=== PATIENT | female | born 1945 | race Caucasian/White ===

== ENCOUNTER 2021-02-26 03:43 | Emergency (ER) | payer OTHER ==
--- OUTSIDE RECORDS SUMMARY | 2021-02-26 03:46 | XMS REPORT | Continuity of Care Document ---
:1945 Author Organization [facility] t Address [address] [place] [address] Dr. [address] [place] [address] Care Team Providers Name Role Phone Only, Test Attending Clinician Unavailable Doctor Unassigned, Name Attending Clinician Unavailable Problems This patient has no known problems. Allergies, Adverse Reactions, Alerts This patient has no known allergies or adverse reactions. Medications This patient has no known medications. Procedures This patient has no known procedures. Encounters Start End Encounter Admission Attending Care Care Encounter Source Date/Time Date/Time Type Type Clinicians Facility Department ID 2020-07-11 2020-07-11 Laboratory Only, [facility] [id number] 08:04:57 08:19:57 Only Test Charlene [id number] [place] [id number] [place] [id number] 2020-07-11 2020-07-11 Orders Doctor [place] [id number] 00:00:00 00:00:00 Only UnassignedREFUGIO [id number] [place] [facility] [id number] Results This patient has no known results.
[2021-02-26 04:23] LABS: Urine Blood 2+ (Negative); Urine Glucose Negative (Negative); Urine Protein 2+ (Negative); Urine Specific Gravity >=1.030 (1.005-1.030)
[2021-02-26 04:28] LABS: Absolute Lymphocytes (CBC) 1.9 K/uL (0.7-4.9); Basophils % 1.1 % (0-1.3); Hematocrit 39.3 % (36.0-45.0); Lymphocytes % 14.1 % (15.3-44.8); MPV 8.6 fL (7.6-11.3); RBC Red Blood Cell Count 4.34 M/uL (3.86-4.86)
[2021-02-26 04:39] LABS: Albumin 4.3 g/dL (3.4-5.0); Bilirubin Direct 0.2 mg/dL (0-0.2); Bilirubin Total 1.1 mg/dL (0.2-1.0); Potassium 3.9 mmol/L (3.5-5.1); Protein, Total 7.7 g/dL (6.4-8.2)
[2021-02-26] MEDS ORDERED: NA CHLORIDE 0.9% 1,000 ML ONE (04:48)
[2021-02-26] MEDS ORDERED: NA CHLORIDE 0.9% 500 ML ONE (04:48)
[2021-02-26 05:36] LABS: Urine Bacteria >50 /HPF (<20)
--- NOTE | 2021-02-26 06:40 | EDPHYS ---
Physician Documentation [facility] Name: Nathalie Winter Age: 75 yrs Sex: Female : 1945 Arrival Date: 02/26/2021 Time: 03:47 Bed 15 Private MD: Haile Braun R ED Physician Douglas Ham HPI: 02/26 04:18 This 75 yrs old Female presents to ER via Ambulatory with complaints of pkl Abdominal Pain, Diarrhea, Dont feel good. 04:18 The patient presents with abdominal pain in the lower abdomen. Onset: The pkl symptoms/episode began/occurred 1 week(s) ago. Associated signs and symptoms: Pertinent positives: nausea, vomiting, and diarrhea. Historical: - Allergies: 04:03 No Known Allergies; jm8 - Home Meds: 04:03 Unable to obtain [Active]; jm8 - PMHx: 04:03 Hypertension; Hypothyroidism; jm8 - Immunization history:: Adult Immunizations Client reports having NOT received the Covid vaccine. - Social history:: Smoking status: unknown. ROS: 04:18 Eyes: Negative for injury, pain, redness, and discharge, ENT: Negative for injury, pkl pain, and discharge, Neck: Negative for injury, pain, and swelling, Cardiovascular: Negative for chest pain, palpitations, and edema, Respiratory: Negative for shortness of breath, cough, wheezing, and pleuritic chest pain. 04:18 Abdomen/GI: Positive for abdominal pain, nausea, vomiting, and diarrhea, of the right lower quadrant and left lower quadrant. 04:18 Back: Negative for acute changes. 04:18 : Negative for urinary symptoms. 04:18 MS/extremity: Negative for acute changes. 04:18 Skin: Negative for rash. 04:18 Neuro: Negative for altered mental status, loss of consciousness. Exam: 04:18 Head/Face: Normocephalic, atraumatic. Eyes: Pupils equal round and reactive to light, pkl extra-ocular motions intact. Lids and lashes normal. Conjunctiva and sclera are non-icteric and not injected. Cornea within normal limits. Periorbital areas with no swelling, redness, or edema. ENT: Nares patent. No nasal discharge, no septal abnormalities noted. Tympanic membranes are normal and external auditory canals are clear. Oropharynx with no redness, swelling, or masses, exudates, or evidence of obstruction, uvula midline. Mucous membranes moist. Neck: Trachea midline, no thyromegaly or masses palpated, and no cervical lymphadenopathy. Supple, full range of motion without nuchal rigidity, or vertebral point tenderness. No Meningismus. Chest/axilla: Normal chest wall appearance and motion. Nontender with no deformity. No lesions are appreciated. Cardiovascular: Regular rate and rhythm with a normal S1 and S2. No gallops, murmurs, or rubs. Normal PMI, no JVD. No pulse deficits. Respiratory: Lungs have equal breath sounds bilaterally, clear to auscultation and percussion. No rales, rhonchi or wheezes noted. No increased work of breathing, no retractions or nasal flaring. 04:18 Abdomen/GI: Bowel sounds: normal, Palpation: soft, mild abdominal tenderness, in the right lower quadrant and left lower quadrant. 04:18 Back: Exam negative for acute changes. 04:18 : Exam negative for acute changes. 04:18 Musculoskeletal/extremity: Exam is negative for acute changes. 04:18 Skin: Exam negative for rash. 04:18 Neuro: Orientation: is normal, Mentation: is normal, Cranial nerves: grossly normal, Motor: is normal. Vital Signs: 03:59 BP 142 / 71; Pulse 92; Resp 16; Temp 98.5; Pulse Ox 99% ; Weight 58.97 kg; Height 5 ft. jm8 2 in. (157.48 cm); Pain 2/10; 06:45 BP 152 / 66; Pulse 71; Resp 16; Pulse Ox 99% on R/A; jm8 07:30 BP 145 / 69; Pulse 68; Resp 15; Pulse Ox 98% ; jl7 03:59 Body Mass Index 23.78 (58.97 kg, 157.48 cm) jm8 MDM: 04:00 Patient medically screened. pkl 06:33 Data reviewed: vital signs, nurses notes, lab test result(s), radiologic studies, CT pkl scan. 06:35 ED course: Patient feeling better. Discussed lab and CT Scan result with patient and pkl daughter. Advised to follow up with Dr. Braun ( PCP ) in 2 to 3 days. To return if necessary. Patient and daughter understood instructions. 02/26 03:58 Order name: COVID-19 : Document "Date of Symptom Onset" if Symptomatic. [facility] 02/26 03:58 Order name: Basic Metabolic Panel [facility] 02/26 03:58 Order name: CBC with Diff [facility] 02/26 03:58 Order name: Hepatic Function [facility] 02/26 03:58 Order name: Lipase [facility] 02/26 04:15 Order name: Stool Culture [facility] 02/26 04:18 Order name: Creatinine, Serum [facility] 02/26 04:23 Order name: Urine Dipstick-Ancillary; Complete Time: 04:45 EDMS 02/26 04:27 Order name: Urine Microscopic Only [facility] 02/26 04:27 Order name: Urine Culture [facility] 02/26 04:36 Order name: CBC with Automated Diff; Complete Time: 04:45 EDMS 02/26 04:39 Order name: Basic Metabolic Panel; Complete Time: 04:45 EDMS 02/26 04:39 Order name: Liver (Hepatic) Function; Complete Time: 04:45 EDMS 02/26 04:39 Order name: Lipase; Complete Time: 04:45 EDMS 02/26 03:58 Order name: IV Saline Lock; Complete Time: 04:25 [facility] 02/26 03:58 Order name: Labs collected and sent; Complete Time: 04:25 [facility] 02/26 03:58 Order name: Urine Dipstick-Ancillary (obtain specimen); Complete Time: 04:25 [facility] 02/26 04:15 Order name: CT Abd/Pelvis - IV Contrast Only [facility] 02/26 04:17 Order name: XRAY CXR (1 view) [facility] 02/26 04:53 Order name: Stool Culture [facility] 02/26 05:10 Order name: CORONAVIRUS [facility] 02/26 05:37 Order name: Urine Microscopic Only; Complete Time: 05:49 [facility]ID 02/26 06:01 Order name: SARS-COV-2 RT PCR; Complete Time: 06:29 EDMS Administered Medications: 04:32 Drug: NS 0.9% 500 ml Route: IV; Rate: bolus; Site: right forearm; jm8 05:35 Follow up: IV Status: Completed infusion 8 04:35 Drug: NS 0.9% 1000 ml Route: IV; Rate: 125 ml/hr; Site: right forearm; jm8 06:39 Drug: Cipro (ciprofloxacin) 400 mg Volume: 200 ml; Route: IVPB; Infused Over: 60 mins; jm8 Site: right antecubital; Disposition: 02/26/21 06:39 Discharged to Home. Impression: Abdominal pain. Urinary tract infection. - Condition is Stable. - Prescriptions for Zofran 4 mg Oral Tablet - take 1 tablet by ORAL route every 12 hours As needed; 14 tablet. Cipro 500 mg Oral Tablet - take 1 tablet by ORAL route every 12 hours for 7 days; 14 tablet. - Medication Reconciliation Form, Thank You Letter, Antibiotic Education, Prescription Opioid Use form. - Follow up: Haile Braun MD; When: 2 - 3 days; Reason: Re-evaluation by your physician. - Problem is new. - Symptoms have improved. Signatures: Dispatcher [employer] EDMS Douglas Ham MD MD pkl Marina May RN RN jl7 Raúl Villalobos 2 Brennon Carrington RN RN jm8 Corrections: (The following items were deleted from the chart) 07:56 06:39 02/26/2021 06:39 Discharged to Home. Impression: Abdominal pain. Urinary tract jl7 infection. Condition is Stable. Forms are Medication Reconciliation Form, Thank You Letter, Antibiotic Education, Prescription Opioid Use. Follow up: Haile Braun; When: 2 - 3 days; Reason: Re-evaluation by your physician. Problem is new. Symptoms have improved. pkl
--- NOTE | 2021-02-26 06:40 | ER ---
Nurse's Notes [facility] Name: Nathalie Winter Age: 75 yrs Sex: Female : 1945 Arrival Date: 02/26/2021 Time: 03:47 Bed 15 Private MD: Haile Braun R Diagnosis: Abdominal pain. Urinary tract infection Presentation: 02/26 03:59 Chief complaint: Patient states: I've been having abdominal pain, nausea, fatigue and jm8 diarrhea since yesterday. Coronavirus screen: Client denies travel out of the [place] in the last 14 days. diarrhea, fatigue, nausea, Client presents with at least one sign or symptom that may indicate coronavirus-19. Ebola Screen: Patient negative for fever greater than or equal to 101.5 degrees Fahrenheit, and additional compatible Ebola Virus Disease symptoms Patient denies exposure to infectious person. Patient denies travel to an Ebola-affected area in the 21 days before illness onset. Initial Sepsis Screen: Does the patient meet any 2 criteria? HR > 90 bpm. Does the patient have a suspected source of infection? No. Patient's initial sepsis screen is negative. Risk Assessment: Do you want to hurt yourself or someone else? Patient reports no desire to harm self or others. Onset of symptoms was February 25, 2021. 03:59 Method Of Arrival: Ambulatory [facility] 03:59 Acuity: FRANCI 3 jm8 Triage Assessment: 04:04 General: Appears in no apparent distress. comfortable, Behavior is calm, cooperative, jm8 appropriate for age. Pain: Complains of pain in abdomen Pain currently is 2 out of 10 on a pain scale. Pain began 1 day ago. Alleviated by medications. EENT: No deficits noted. No signs and/or symptoms were reported regarding the EENT system. Neuro: Level of Consciousness is awake, alert, obeys commands, Oriented to person, place, time. Cardiovascular: No deficits noted. Respiratory: No deficits noted. Respiratory: Airway is patent Trachea midline Respiratory effort is even, unlabored. GI: Bowel sounds present X 4 quads. Abd is soft and non tender X 4 quads. Reports lower abdominal pain, upper abdominal pain, diarrhea, nausea. : No deficits noted. No signs and/or symptoms were reported regarding the genitourinary system. Derm: No deficits noted. No signs and/or symptoms reported regarding the dermatologic system. Derm: Skin is intact, is healthy with good turgor, Skin is dry, Skin is pink, warm \\T\\ dry. Skin temperature is warm. Musculoskeletal: No deficits noted. No signs and/or symptoms reported regarding the musculoskeletal system. Historical: - Allergies: 04:03 No Known Allergies; jm8 - Home Meds: 04:03 Unable to obtain [Active]; jm8 - PMHx: 04:03 Hypertension; Hypothyroidism; jm8 - Immunization history:: Adult Immunizations Client reports having NOT received the Covid vaccine. - Social history:: Smoking status: unknown. Screenin:06 Abuse screen: Denies threats or abuse. Denies injuries from another. Nutritional jm8 screening: No deficits noted. Tuberculosis screening: No symptoms or risk factors identified. Fall Risk None identified. Assessment: 04:06 Reassessment: see triage assessment. 8 06:42 Reassessment: [phone]- Radha. jm8 Vital Signs: 03:59 BP 142 / 71; Pulse 92; Resp 16; Temp 98.5; Pulse Ox 99% ; Weight 58.97 kg; Height 5 ft. jm8 2 in. (157.48 cm); Pain 2/10; 06:45 BP 152 / 66; Pulse 71; Resp 16; Pulse Ox 99% on R/A; jm8 07:30 BP 145 / 69; Pulse 68; Resp 15; Pulse Ox 98% ; jl7 03:59 Body Mass Index 23.78 (58.97 kg, 157.48 cm) jm8 ED Course: 03:47 Patient arrived in ED. es 03:47 aHile Braun MD is Private Physician. es 04:00 Douglas Ham MD is Attending Physician. pkl 04:02 Triage completed. jm8 04:06 Arm band placed on right wrist. jm8 04:06 Patient has correct armband on for positive identification. Call light in reach. Side jm8 rails up X2. Adult w/ patient. 04:35 Inserted saline lock: 20 gauge in right forearm, using aseptic technique. Blood jm8 collected. 06:38 Haile Braun MD is Referral Physician. pkl 07:50 Marina May RN is Primary Nurse. jl7 07:55 No provider procedures requiring assistance completed. IV discontinued, intact, jl7 bleeding controlled, No redness/swelling at site. Pressure dressing applied. 07:56 CORONAVIRUS Sent. sv 07:56 Urine Microscopic Only Sent. sv 07:56 Urine Culture Sent. sv 07:56 Lipase Sent. sv 07:56 COVID-19 : Document "Date of Symptom Onset" if Symptomatic. Sent. sv 07:56 Hepatic Function Sent. sv 07:56 CBC with Diff Sent. sv 07:56 Basic Metabolic Panel Sent. sv 07:56 Creatinine, Serum Sent. sv Administered Medications: 04:32 Drug: NS 0.9% 500 ml Route: IV; Rate: bolus; Site: right forearm; jm8 05:35 Follow up: IV Status: Completed infusion jm8 04:35 Drug: NS 0.9% 1000 ml Route: IV; Rate: 125 ml/hr; Site: right forearm; jm8 06:39 Drug: Cipro (ciprofloxacin) 400 mg Volume: 200 ml; Route: IVPB; Infused Over: 60 mins; jm8 Site: right antecubital; Outcome: 06:39 Discharge ordered by . pkhumaira 07:55 Discharged to home ambulatory, with family. jl7 07:55 Condition: stable 07:55 Discharge instructions given to patient, family, Instructed on discharge instructions, follow up and referral plans. medication usage, Demonstrated understanding of instructions, follow-up care, medications, Prescriptions given X 2. 07:56 Patient left the ED. jl7 Signatures: Shae Pearson RN Douglas Ly MD MD pkl Salyer, Edna es Leal, Jahala, RN RN jl7 Malcaba, Joseph RN CHAYO jm8 Corrections: (The following items were deleted from the chart) 04:07 04:04 GI: Reports lower abdominal pain, upper abdominal pain, diarrhea, nausea, jm8 jm8
[2021-02-26] MEDS ORDERED: CIPROFLOXACIN 400mg IV 400 MG/200 ML BAG IV ONE (06:57)
[2021-02-26 08:09] VITALS: TEMP 98.5
[2021-02-26 08:12] VITALS: BP 145/69; O2SAT 98
--- NOTE | 2021-02-26 08:24 | RAD REPORT ---
EXAM DESCRIPTION: RAD - Chest Single View - 02/26/2021 4:39 am CLINICAL HISTORY: ABDOMINAL DISTENTION COMPARISON: None TECHNIQUE: AP portable chest image was obtained 02/26/2021 4:39 am . FINDINGS: Lungs are clear. Heart and vasculature are normal. No measurable pleural effusion and no p neumothorax. No acute bony abnormality seen. No acute aortic findings suspected. IMPRESSION: No acute cardiopulmonary process.
--- NOTE | 2021-02-26 11:10 | RAD REPORT ---
EXAM DESCRIPTION: CT - Abdomen Pelvis W Contrast - 02/26/2021 6:51 am CLINICAL HISTORY: The patient is 75 years old and is Female; ABD PAIN TECHNIQUE: Axial computed tomography images of the abdomen and pelvis with intravenous contrast. S agittal and coronal reformatted images were created and reviewed. This CT exam was performed using one or more of the following dose reduction techniques: automated exposure control, adjustment of t he mA and/or kV according to patient size, and/or use of iterative reconstruction technique. COMPARISON: No relevant prior studies available. FINDINGS: Lung bases: Unremarkable. No mass. No consolidation. ABDOMEN: Liver: Unremarkable. No mass. Gallbladder and bile ducts: Unremarkable. No calcified stones. No ductal dilation. Pancreas: Unremarkable. No mass. No ductal dilation. Spleen: Unremarkable. No splenomegaly. Adrenals: Unremarkable. No mass. Kidneys and ureters: Unremarkable. No solid mass. No hydronephrosis. Stomach and bowel: Scattered colonic diverticula without evidence of diverticulitis. No obstruction. PELVIS: Appendix: No findings to suggest acute appendicitis. Bladder: Unremarkable. No mass. Reproductive: Unremarkable as visualized. ABDOMEN and PELVIS: Intraperitoneal space: Small amount of free fluid in the dependent pelvis. No free air. Bones/joints: No acute fracture. No dislocation. Soft tissues: Unremarkable. Vasculature: Unremarkable. No abdominal aortic aneurysm. Lymph nodes: Unremarkable. No enlarged lymph nodes. IMPRESSION: 1. No acute finding. 2. Small amount of free fluid in the dependent pelvis. 3. Scattered colonic diverticula without evidence of diverticulitis. Electronically signed by: Demarco Nguyen MD 02/26/2021 6:01 AM CDT Due to temporary technical issues with the PACS/Fluency reporting system, reports are being signed by the in house radiologists without review as a courtesy to insure prompt reporting. The interpreting radiologist is fully responsible for the content of the report.
== END 2021-02-26 07:56 | disposition home or self-care (01) ==
LOC: ER 03:43
DX: N39.0 Urinary tract infection, site not specified (principal); I10 Essential (primary) hypertension; E03.9 Hypothyroidism, unspecified; Z20.822 Contact with and (suspected) exposure to COVID-19
CPT/HCPCS: 87088; 85025; 87086; 80048; 36415; 80076; 83690; 74177; 71045; U0003; Q9967; J7040; J7030; J0744; 81003; 81015; 96361; 96374; 99284

== ENCOUNTER 2024-12-17 02:13 | Emergency (ER) | payer OTHER ==
--- OUTSIDE RECORDS SUMMARY | 2024-12-17 02:18 | XMS REPORT | Continuity of Care Document ---
Author Name Unknown Address [address] [place] [address] [facility] [place] Address [address] [place] [address] Care Team Providers Care Rehab Manager Name Role Phone Kristie Johnson Primary Care Physician [phone] DR ISAIAH SORIA Attending Clinician Polo SORIA, DR COLON Attending Clinician JALYON Dasilva Attending Clinician DR ROSA Parish Attending Clinician UnaDR ROSA Rhoades Attending Clinician TRE Daniels Attending Clinician UnavailTRE Carcamo Attending Clinician Unavaillinda Nathan MD, Tre Taylor Attending Clinician [phone] PRINCESS SHELDON Attending Clinician Unavailable Nurse, [facility] Attending Clinician Un available Unknown, Attending Attending Clinician UnavailYOAN Stanton Attending Clinician Unavailable JIM BO Attending Clinician Yessica PITO Moe Attending Clinician Unavailable Pito Melendrez Attending Clinician [phone] Unknown, Attending Attending Clinician Unavailab Ivory Epstein MD Attending Clinician [phone] Princess Sheldon PA-C Attending Clinician [phone] Doctor Unassigned, [place] Attending Clinician U navailable Only, Adc Test Attending Clinician Unavailable Demarco Castillo MD Attending Clinician [phone] DR ISAIAH SORIA Admitting Clinician Polo REILLY, DR ROSA Veliz Admitting Clinician Jose De Jesus gonzalez Payers Payer Name Policy Type Policy Number Effective Date Expirati on Date Source 0500 [id number] 2024 00:00:00 MEDICARE PART A AND B [id number] 2010 00:00:00 MEDICARE PART A \\T\\ B [id number] 2010 00:00:00 Problems Condition Name Condition Details Condition Category Status Onset Date Resolution Date Last Treatment Date Treating Clinician Comments Source Delusions Delusions Disease Active 06-09 00:00: 00 [facility] Hallucinat ions Hallucinat ions Disease Active 06-09 00:00: 00 [facility] Decreased activities of daily living (ADL) Decreased activities of daily living (ADL) Disease Active 06-09 00:00: 00 [facility] Anosognosi a Anosognosi a Disease Active 06-09 00:00: 00 [facility] Wandering Wandering Disease Active 06-09 00:00: 00 [facility] At risk for elder abuse At risk for elder abuse Disease Active 06-09 00:00: 00 [facility] 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 06-09 00:00: 00 [facility] Hypertensi on Hypertensi on Disease Active [facility] Allergies, Adverse Reactions, Alerts Allergy Name Allergy Type Status Severity Reaction(s) Onset Date Inactive Date Treating Clinician Comments Source NO KNOWN ALLERGIE S Drug Class Active [facility] No Known Drug Allergie s DA Active [facility] Social History Social Habit Start Date Stop Date Quantity Comments Source Exposure to SARS-CoV-2 (event) Not sure [facility] Sexual orientation [facility] History of Social function 2024-06-09 00:00:00 2024-06-09 00:00:00 [facility] Alcoholic beverage intake 2024-06-09 00:00:00 2024-06-09 00:00:00 Lifetime non-drinker (finding) [facility] Tobacco use and exposure 2023-09-10 00:00:00 2023-09-10 00:00:00 Smokeless tobacco non-user [facility] Sex assigned at 1945 00:00:00 1945 00:00:00 F [facility] Smoking Status Start Date Stop Date Source Tobacco smoking consumption unknown [facility] Never smoked tobacco [facility] Medications Ordered Medication Name Filled Medication Name Start Date Stop Date Current Medication? Ordering Clinician Indication Dosage Frequency Signature (SIG) Comments Components Source levothyroxi ne (SYNTHROID) tablet 50 mcg 07-11 11:00: 00 Yes 50ug 50 mcg, Oral, QAM-0600, First dose on Thu07/11/24 at 0600, [facility]isin[facility] (PRINIVIL,Z ESTRIL) tablet 30 mg 07-10 15:45: 00 07-10 14:51 :00 No 30mg 30 mg, Oral, ONCE, 1 dose, On 07/10/24 at 1045, [facility] amLODIPine (NORVASC) tablet 5 mg 07-10 15:00: 00 07-10 14:51 :00 No 5mg 5 mg, Oral, ONCE, 1 dose, On 07/10/24 at 1000, DEBORAH [facility] amLODIPine 5 mg tablet 07-10 00:00: 00 Yes [id number] 5mg Take 1 tablet by mouth in the morning. [facility] lisinopriL 30 mg tablet 07-10 00:00: 00 Yes [id number] 30mg Take 1 tablet by mouth in the morning. [facility] levothyroxi ne 50 mcg tablet 07-10 00:00: 00 Yes [id number] 50ug Take 1 tablet by mouth every morning. [facility] QUEtiapine XR (SEROquel XR) 50 MG 24 hr tablet 06-09 00:00: 00 12-07 05:59 :00 No [id number] 50mg Take 1 tablet (50 mg total) by mouth every night. Do not crush, chew, or split. [facility] levothyroxi ne (SYNTHROID) 50 mcg tablet 04-01 16:54: 32 04-01 00:00 :00 No 50ug Take 1 tablet by mouth every morning. [facility] propranoloL 10 mg tablet 04-01 16:34: 20 Yes 10mg Take 1 tablet by mouth in the morning and 1 tablet in the evening. [facility] amLODIPine 5 mg tablet 04-01 00:00: 00 05-02 04:59 :00 No [id number] 5mg Take 1 tablet by mouth in the morning for 30 days. [facility] levothyroxi ne (SYNTHROID) 50 mcg tablet 04-01 00:00: 00 05-02 04:59 :00 No [id number] 50ug Take 1 tablet by mouth every morning for 30 days. [facility] lisinopriL 30 mg tablet 04-01 00:00: 00 05-02 04:59 :00 No [id number] 30mg Take 1 tablet by mouth in the morning for 30 days. [facility] polymyxin B sulf-trimet hoprim 10,000 unit- 1 mg/mL ophthalmic drops 04-01 00:00: 00 04-09 04:59 :00 No [id number] 1[drp] Place 1 Drop in both eyes every 6 (six) hours for 7 days. [facility] levothyroxi ne (Synthroid, Levoxyl) 50 MCG tablet 12-04 09:56: 45 Yes 50ug Take 50 mcg by mouth every morning. [facility] propranolol (Inderal) 10 MG tablet 12-04 09:56: 45 Yes 10mg Q.5D Take 10 mg by mouth 2 (two) times a day, in the morning and at bedtime. [facility] levothyroxi ne (SYNTHROID) 50 mcg tablet 2022-10 14:39: 41 Yes 50ug Take 1 tablet by mouth every morning. [facility] propranoloL 10 mg tablet 2022-10 14:39: 32 Yes 10mg Take 1 tablet by mouth in the morning and 1 tablet in the evening. [facility] nirmatrelvi r-ritonavir (PAXLOVID) 300 mg (150 mg x 2)-100 mg tablet 2022-10 00:00: 00 Yes [id number] 3{tbl} Take 3 tablets by mouth in the morning and 3 tablets in the evening. [facility] amoxicillin 500 mg capsule 2022-10 00:00: 00 Yes 500mg Take 1 capsule by mouth in the morning and 1 capsule at noon and 1 capsule in the evening. [facility] Nitrofurant oin&Nit. Macrocryst (MACROBID) 100 mg capsule 2022-10 00:00: 00 09-18 05:59 :00 No [id number] 100mg Take 1 capsule by mouth in the morning and 1 capsule in the evening. Do all this for 7 days. [facility] lisinopril 30 MG tablet 2022-10 00:00: 00 Yes 30mg Take 30 mg by mouth every morning. [facility] amLODIPine (Norvasc) 5 MG tablet 2022-10 00:00: 00 Yes 5mg QD Take 5 mg by mouth 1 (one) time each day. [facility] Vital Signs Vital Name Observation Time Observation Value Comments S ource Height 2024-07-23 08:57:00 160.02 CM Weight 2024-07-23 08:57:00 50 KG Weight 2024-08-08 07:00:00 49.6 KG Weight 2024-08-01 07:00:00 47.9 KG Weight 2024-07-25 07:00:00 47.7 KG Height 2024-07-23 08:57:00 160.02 CM Weight 2024-07-23 08:57:00 50 KG Weight 2024-08-08 07:00:00 49.6 KG Weight 2024-08-01 07:00:00 47.9 KG Weight 2024-07-25 07:00:00 47.7 KG Height 2024-07-23 08:57:00 160.02 CM Weight 2024-07-23 08:57:00 50 KG Body weight 2024-07-10 14:36:00 49.805 kg [facility] BMI 2024-07-10 14:36:00 19.45 kg/m2 [facility] Systolic blood pressure 2024-07-10 14:35:00 196 mm[Hg] [facility] Diastolic blood pressure 2024-07-10 14:35:00 93 mm[Hg] [facility] Heart rate 2024-07-10 14:35:00 68 /min [facility] Body temperature 2024-07-10 14:35:00 36.61 Elisabet [facility] Respiratory rate 2024-07-10 14:35:00 20 /min [facility] Body height 2024-07-10 14:35:00 160 cm [facility] Oxygen saturation in Arterial blood by Pulse oximetry 2024-07-10 14:35:00 100 /min [facility] Systolic blood pressure 2024-07-10 14:27:00 199 mm[Hg] [facility] Diastolic blood pressure 2024-07-10 14:27:00 75 mm[Hg] [facility] Heart rate 2024-07-10 14:26:00 60 /min [facility] Body temperature 2024-07-10 14:26:00 36.44 Elisabet [facility] Respiratory rate 2024-07-10 14:26:00 18 /min [facility] Oxygen saturation in Arterial blood by Pulse oximetry 2024-07-10 14:26:00 100 /min [facility] Systolic blood pressure 2024-06-09 18:18:00 157 mm[Hg] [facility] Diastolic blood pressure 2024-06-09 18:18:00 68 mm[Hg] [facility] Heart rate 2024-06-09 18:17:00 72 /min [facility] Body height 2024-06-09 18:17:00 160 [facility] Body weight 2024-06-09 18:17:00 [facility].438 [facility] BMI 2024-06-09 18:17:00 20.09 [facility]m2 [facility] Oxygen saturation in Arterial blood by Pulse oximetry 2024-06-09 18:17:00 98 /min [facility] Systolic blood pressure 2024-04-01 21:33:00 171 mm[Hg] [facility] Diastolic blood pressure 2024-04-01 21:33:00 73 mm[Hg] [facility] Heart rate 2024-04-01 21:33:00 69 /min [facility] Body temperature 2024-04-01 21:33:00 36.78 Elisabet [facility] Respiratory rate 2024-04-01 21:33:00 17 /min [facility] Body weight 2024-04-01 21:33:00 50.803 kg [facility] BMI 2024-04-01 21:33:00 20.49 kg/m2 [facility] Oxygen saturation in Arterial blood by Pulse oximetry 2024-04-01 21:33:00 99 /min [facility] Diastolic blood pressure 2023-12-04 15:57:00 73 mm[Hg] [facility] Heart rate 2023-12-04 15:57:00 53 /min [facility] Body height 2023-12-04 15:57:00 160 [facility] Body weight 2023-12-04 15:57:00 49.442 [facility] BMI 2023-12-04 15:57:00 19.31 kg[facility]m2 [facility] Oxygen saturation in Arterial blood by Pulse oximetry 2023-12-04 15:57:00 99 /min [facility] Systolic blood pressure 2023-12-04 15:57:00 136 mm[Hg] [facility] Systolic blood pressure 2023-09-25 20:25:00 149 mm[Hg] [facility] Diastolic blood pressure 2023-09-25 20:25:00 79 mm[Hg] [facility] Heart rate 2023-09-25 20:24:00 87 /min [facility] Body temperature 2023-09-25 20:24:00 37.83 Elisabet [facility] Respiratory rate 2023-09-25 20:24:00 18 /min [facility] Body height 2023-09-25 20:24:00 157.5 cm [facility] Body weight 2023-09-25 20:24:00 51.12 kg [facility] BMI 2023-09-25 20:24:00 20.61 kg/m2 [facility] Oxygen saturation in Arterial blood by Pulse oximetry 2023-09-25 20:24:00 97 /min [facility] Systolic blood pressure 2023-09-10 19:43:00 166 mm[Hg] [facility] Diastolic blood pressure 2023-09-10 19:43:00 70 mm[Hg] [facility] Heart rate 2023-09-10 19:41:00 54 /min [facility] Body temperature 2023-09-10 19:41:00 36.56 Elisabet [facility] Respiratory rate 2023-09-10 19:41:00 20 /min [facility] Body height 2023-09-10 19:41:00 160 cm [facility] 2023-09-10 19:41:00 51.982 kg [facility] BMI 2023-09-10 19:41:00 20.30 kg/m2 [facility] Oxygen saturation in Arterial blood by Pulse oximetry 2023-09-10 19:41:00 100 /min [facility] Procedures Procedure Date / Time Performed Performing Clinician Source TSH 2023-12-09 16:49:00 [facility] 2023-12-09 16:49[facility] 2023-12-09 16:49:00 Jj Staley [facility] VITAMIN B12 AND FOLATE PANEL, SERUM 2023-12-09 16:49:00 [facility] PO[facility] SARS-COV-2 ANTIGEN (BINAX NOW) 2023-09-25 20:41:00 Princess Sheldon [facility] POCT MOLECULAR FLU 2023-09-25 20:37:00 Unknown, Attend [facility] POCT URINALYSIS 2023-09-10 19:39:00 Gabriela [facility] CONSENT/REFUSAL FOR DIAGNOSIS AND TREATMENT 2023-09-10 19:20:30 Doctor Unassigned, [place] [facility] ASSIGNMENT OF BENEFITS 2020-07-11 13:08:13 Docto r Unassigned, [place] [facility] Encounters Start Date/Time End Date/Time Encounter Type Admission Type Attending Clinicians Care Facility Care Department Encounter ID Source 2024-07-23 09:47:00 Inpatient ISAIAH MARSH [facility] [id number] [facility] 2023-10-08 09:27:00 Outpatient [facility] [id number] [facility] 2022-01-15 08:00:02 Outpatient [facility] [id number] [facility] 2024-09-14 13:30:00 2024-09-14 13:30:00 Outpatient EMILY WARRENGAS JAYLON [facility] [id number] [facility] 2024-07-23 09:47:00 2024-08-09 13:00:00 Inpatient ISAIAH MARSH [facility] [id number] [facility] 2024-07-23 09:47:00 2024-08-09 13:00:00 Outpatient OMCDOCS [facility] [id number] [facility] 2024-07-24 09:00:00 2024-07-24 11:00:00 Emergency ROAS [facility]AMONTES [facility] [id number] [facility] 2024-07-24 09:00:00 2024-07-24 11:00:00 Emergency ROSA MIRAMONTES [facility] [id number] [facility] 2024-07-10 09:37:00 2024-07-10 10:05:00 Emergency X TRE NATHAN ROBERT [facility] ERT [id number] [facility] 2024-07-10 09:37:00 2024-07-10 10:05:00 Emergency Tre [facility] 1..840.114 350.1.13.10 4.2.7.2.686 [id number] [facility] 2024-07-10 09:15:00 2024-07-10 09:28:42 Outpatient PRINCESS EVANS [facility] [id number] [facility] 2024-07-10 09:15:00 2024-07-10 09:28:42 Nurse Visit Nurse, [facility] Unknown, Attending Nurse, [facility] 1..840.114 350.1.13.10 4.2.7.2.686 [id number] [facility] 2024-06-22 08:30:00 2024-06-22 08:30:00 Outpatient YOAN GALLAGHER [facility] [id number] [facility] 2024-06-17 00:00:00 2024-06-17 11:08:40 Charges Jaylon Reddy BBS 1..840.114 350.1.13.58 9.2.7.2.686 [id number] [facility] 2024-06-09 13:30:00 2024-06-09 14:41:54 Office Visit Jaylon Reddy UTP BBSB 1.114 350.1.13.58 9.2.7.2.686 [id number] [facility] 2024-04-02 09:33:00 2024-04-02 10:36:00 Emergency E JIM BO [facility] [id number] [address] [place] [address] 2024-04-01 16:20:00 2024-04-01 16:55:22 Outpatient R VAZ PITO [facility] [id number] [facility] 2024-04-01 16:20:00 2024-04-01 16:55:22 Urgent Care Allyson Vazkhalifstephen Unknown, Attending [facility] 1.114 350.1.13.10 4.2.7.2.686 [id number] [facility] 2024-03-17 11:00:00 2024-03-17 11:22:11 Telemedici ne Ivory Staley [facility]BS[facility] 1.114 350.1.13.58 9.2.7.2.686 [id number] [facility] 2024-02-16 12:30:00 2024-02-17 10:52:09 Outpatient YOAN GALLAGHER [facility] [id number] [facility] 2023-12-04 10:00:00 2023-12-04 10:37:50 Office Visit Ivory Staley [facility]BS[facility] 1.114 350.1.13.58 9.2.7.2.686 [id number] [facility] 2023-09-25 14:20:00 2023-09-25 14:40:00 Urgent Care Breanna Princess Unknown, Attending [facility] 1.114 350.1.13.10 4.2.7.2.686 [id number] [facility] 2023-09-25 14:20:00 2023-09-25 14:20:00 Outpatient R PRINCESS SHELDON [facility] [id number] [facility] 2023-09-10 13:20:00 2023-09-10 14:12:32 Outpatient R PRINCESS SHELDON [facility] [id number] [facility] 2023-09-10 13:20:00 2023-09-10 14:12:32 Urgent Care Princess Sheldon Unknown, Attending [facility] 1.84.114 350.1.13.10 4.2.7.2.686 [id number] [facility] 2023-09-10 00:00:00 2023-09-10 00:00:00 Orders Only Doctor Unassigned, [place] [address]..114 350.1.13.10 4.2.7.2.686 [id number] [facility] 2020-07-11 08:45:00 2020-07-11 08:45:00 Outpatient R [facility] [id number] [facility] 2020-07-11 08:04:57 2020-07-11 08:19:57 Laboratory Only Only, Adc Test JonathanDemarco [facility] 1..114 350.1.13.10 4.2.7.2.686 [id number] [facility] 2020-07-11 08:04:57 2020-07-11 08:19:57 Laboratory Only Only, Adc Test [facility] 1.840.114 350.1.13.10 4.2.7.2.686 [id number] 2020-07-11 00:00:00 2020-07-11 00:00:00 Orders Only Doctor Unassigned, [place] [address] 350.1.13.10 4.2.7.2.686 [id number] [facility] 2020-07-11 00:00:00 2020-07-11 00:00:00 Orders Only Doctor Unassigned, [place] [facility] 1.2.840.114 350.1.13.10 4.2.7.2.686 [id number] Results Test Description Test Time Test Comments Results Result Co mments Source VALPROIC ACID (DEPAKENE)2024-08-03 07:27:00* Test Item Value Reference Range Interpretation Comme nts VALP ACID (test code = 95A) <3.0 ug/mL 50.0-100.0 LL BASIC METABOLIC [id number] 07:07:00* Test Item Value Reference Range Interpretation Comme nts GLUCOSE (test code = 06D) 93 mg/dL 75-100 SODIUM (test code = 01A) 139 mmol/L 136-145 POTASSIUM (test code = 01B) 4.7 mmol/L 3.6-5.1 CHLORIDE (test code = 04A) 107 mmol/L 98-107 CO2 (test code = 02A) 24 mmol/L 20-31 ANION GAP (test code = ANG) 12.7 mmol/L BUN (test code = 05D) 23 mg/dL 9-23 CREATININE (test code = 03E) 0.7 mg/dL 0.6-1.0 GFR (test code = GFR) 88 mL/min/1.73m\\S\\2 >=90 L EGFR (test code = EGFR) eGFR BY CKD-EPI CALCULATION IS NOT RECOMMENDED FOR PATIENTS UNDER 18 YEARS OF AGE. BUN/CREA (test code = BCR) 33 12-20 H CALCIUM (test code = 09D) 9.2 mg/dL 8.3-10.6 CBC (INCLUDES AUTOMATED DIFFERENTIAL)2024-08-03 06:56:00* Test Item Value Reference Range Interpretation Comme nts WBC (test code = WBC) 8.9 10\\S\\3/uL 4.5-11.0 RBC (test code = RBC) 3.48 10\\S\\6/uL 3.80-5.80 L HGB (test code = HBG) 10.6 g/dL 12.0-15.5 L HCT (test code = HCT) 32.3 % 35.0-44.0 L MCV (test code = MCV) 92.8 fL 81.0-99.0 MCH (test code = MCH) 30.5 pg 27.0-31.0 MCHC (test code = MCHC) 32.8 g/dL 32.0-36.0 RDW (test code = RDW) 12.7 % 11.5-14.5 PLT (test code = PLT) 279 10\\S\\3/uL 130-400 MPV (test code = MPV) 9.9 fL 9.4-12.4 NEUTROP # (test code = NE#) 4.9 10\\S\\3/uL 1.6-8.0 LYMPH # (test code = LY#) 2.9 10\\S\\3/uL 1.1-3.5 MONOCYTE # (test code = MO#) 0.8 10\\S\\3/uL 0.0-1.1 EOSINOPH # (test code = EO#) 0.2 10\\S\\3/uL 0.0-0.7 BASOPHIL # (test code = BA#) 0.1 10\\S\\3/uL 0.0-0.3 IG # (test code = IG#) 0.02 10\\S\\3/uL 0.00-0.06 NRBC # (test code = NRBC#) 0.00 10\\S\\3/uL 0.00-0.01 NEUTROPH % (test code = NE%) 54.6 % 35.0-73.0 LYMPH % (test code = LY%) 32.4 % 20.0-55.0 MONO % (test code = MO%) 9.1 % 2.5-10.0 EOSINOPH % (test code = EO%) 2.6 % 0.0-5.0 BASOPHIL % (test code = BA%) 1.1 % 0.0-2.0 IG % (test code = IG%) 0.2 % 0.0-0.8 NRBC% (test code = NRBC%) 0.0 % 0.0-0.2 MANDIFF (test code = MDIFF) NO RBC MORPH (test code = RBCMOR) NORMAL URINE [id number] 09:00:00* Test Item Value Reference Range Interpretation Comme nts Culture Observations (test code = COB1) NO GROWTH (<1,000 CFU/ML) CBC (INCLUDES AUTOMATED DIFFERENTIAL)2024-07-29 08:04:00* Test Item Value Reference Range Interpretation Comme nts WBC (test code = WBC) 7.9 10\\S\\3/uL 4.5-11.0 RBC (test code = RBC) 3.80 10\\S\\6/uL 3.80-5.80 HGB (test code = HBG) 11.5 g/dL 12.0-15.5 L HCT (test code = HCT) 35.1 % 35.0-44.0 MCV (test code = MCV) 92.4 fL 81.0-99.0 MCH (test code = MCH) 30.3 pg 27.0-31.0 MCHC (test code = MCHC) 32.8 g/dL 32.0-36.0 RDW (test code = RDW) 13.1 % 11.5-14.5 PLT (test code = PLT) 256 10\\S\\3/uL 130-400 MPV (test code = MPV) 9.8 fL 9.4-12.4 NEUTROP # (test code = NE#) 4.4 10\\S\\3/uL 1.6-8.0 LYMPH # (test code = LY#) 2.6 10\\S\\3/uL 1.1-3.5 MONOCYTE # (test code = MO#) 0.6 10\\S\\3/uL 0.0-1.1 EOSINOPH # (test code = EO#) 0.2 10\\S\\3/uL 0.0-0.7 BASOPHIL # (test code = BA#) 0.1 10\\S\\3/uL 0.0-0.3 IG # (test code = IG#) 0.02 10\\S\\3/uL 0.00-0.06 NRBC # (test code = NRBC#) 0.00 10\\S\\3/uL 0.00-0.01 NEUTROPH % (test code = NE%) 55.6 % 35.0-73.0 LYMPH % (test code = LY%) 32.4 % 20.0-55.0 MONO % (test code = MO%) 8.1 % 2.5-10.0 EOSINOPH % (test code = EO%) 2.5 % 0.0-5.0 BASOPHIL % (test code = BA%) 1.1 % 0.0-2.0 IG % (test code = IG%) 0.3 % 0.0-0.8 NRBC% (test code = NRBC%) 0.0 % 0.0-0.2 MANDIFF (test code = MDIFF) NO RBC MORPH (test code = RBCMOR) NORMAL BASIC METABOLIC [id number] 07:38:00* Test Item Value Reference Range Interpretation Comme nts GLUCOSE (test code = 06D) 94 mg/dL 75-100 SODIUM (test code = 01A) 138 mmol/L 136-145 POTASSIUM (test code = 01B) 4.8 mmol/L 3.6-5.1 CHLORIDE (test code = 04A) 107 mmol/L 98-107 CO2 (test code = 02A) 25 mmol/L 20-31 ANION GAP (test code = ANG) 10.8 mmol/L BUN (test code = 05D) 18 mg/dL 9-23 CREATININE (test code = 03E) 1.0 mg/dL 0.6-1.0 GFR (test code = GFR) 57 mL/min/1.73m\\S\\2 >=90 L EGFR (test code = EGFR) eGFR BY CKD-EPI CALCULATION IS NOT RECOMMENDED FOR PATIENTS UNDER 18 YEARS OF AGE. BUN/CREA (test code = BCR) 18 12-20 CALCIUM (test code = 09D) 9.3 mg/dL 8.3-10.6 COMPREHENSIVE METABOLIC [id number] 10:04:00* Test Item Value Reference Range Interpretation Comme nts GLUCOSE (test code = 06D) 121 mg/dL 75-100 H SODIUM (test code = 01A) 143 mmol/L 136-145 POTASSIUM (test code = 01B) 3.5 mmol/L 3.6-5.1 L CHLORIDE (test code = 04A) 106 mmol/L 98-107 CO2 (test code = 02A) 30 mmol/L 20-31 ANION GAP (test code = ANG) 10.5 mmol/L BUN (test code = 05D) 17 mg/dL 9-23 CREATININE (test code = 03E) 0.8 mg/dL 0.6-1.0 GFR (test code = GFR) 80 mL/min/1.73m\\S\\2 >=90 L EGFR (test code = EGFR) eGFR BY CKD-EPI CALCULATION IS NOT RECOMMENDED FOR PATIENTS UNDER 18 YEARS OF AGE. BUN/CREA (test code = BCR) 22 12-20 H CALCIUM (test code = 09D) 10.0 mg/dL 8.3-10.6 BILI TOTAL (test code = 11A) 1.6 mg/dL 0.2-1.0 H PROTEIN (test code = 07D) 6.7 g/dL 5.7-8.2 ALBUMIN (test code = 08D) 4.9 g/dL 3.2-4.8 H GLOBULIN (test code = GLB) 1.8 g/dL 1.5-3.8 ALB/GLOB (test code = AGRR) 2.7 1.0-2.6 H ALK PHOS (test code = 35A) 89 IU/L 46-116 AST (test code = 30A) 22 IU/L <=33 ALT (test code = 31A) 13 IU/L 10-49 TROPONIN [id number] 10:02:00* Test Item Value Reference Range Interpretation Comme nts TROPONIN I (test code = A84) 17.32 pg/mL 0.00-45.20 CBC (INCLUDES AUTOMATED DIFFERENTIAL)2024-07-24 09:50:00* Test Item Value Reference Range Interpretation Comme nts WBC (test code = WBC) 11.6 10\\S\\3/uL 4.5-11.0 H RBC (test code = RBC) 3.96 10\\S\\6/uL 3.80-5.80 HGB (test code = HBG) 12.0 g/dL 12.0-15.5 HCT (test code = HCT) 35.8 % 35.0-44.0 MCV (test code = MCV) 90.4 fL 81.0-99.0 MCH (test code = MCH) 30.3 pg 27.0-31.0 MCHC (test code = MCHC) 33.5 g/dL 32.0-36.0 RDW (test code = RDW) 12.9 % 11.5-14.5 PLT (test code = PLT) 255 10\\S\\3/uL 130-400 MPV (test code = MPV) 9.8 fL 9.4-12.4 NEUTROP # (test code = NE#) 7.8 10\\S\\3/uL 1.6-8.0 LYMPH # (test code = LY#) 2.8 10\\S\\3/uL 1.1-3.5 MONOCYTE # (test code = MO#) 0.8 10\\S\\3/uL 0.0-1.1 EOSINOPH # (test code = EO#) 0.1 10\\S\\3/uL 0.0-0.7 BASOPHIL # (test code = BA#) 0.1 10\\S\\3/uL 0.0-0.3 IG # (test code = IG#) 0.03 10\\S\\3/uL 0.00-0.06 NRBC # (test code = NRBC#) 0.00 10\\S\\3/uL 0.00-0.01 NEUTROPH % (test code = NE%) 66.6 % 35.0-73.0 LYMPH % (test code = LY%) 24.2 % 20.0-55.0 MONO % (test code = MO%) 7.0 % 2.5-10.0 EOSINOPH % (test code = EO%) 1.0 % 0.0-5.0 BASOPHIL % (test code = BA%) 0.9 % 0.0-2.0 IG % (test code = IG%) 0.3 % 0.0-0.8 NRBC% (test code = NRBC%) 0.0 % 0.0-0.2 MANDIFF (test code = MDIFF) NO RBC MORPH (test code = RBCMOR) NORMAL GLUCOMETER GLUCOSE- LAB USE [id number] 09:10:00* Test Item Value Reference Range Interpretation Comme nts GLUCOMETER (test code = GMG) 109 mg/dL 70-100 H CLEANED METERMet er ID: [id number]: [id number] MELODY WILSON VALPROIC ACID (DEPAKENE)2024-07-23 16:59:00* Test Item Value Reference Range Interpretation Comme nts VALP ACID (test code = 95A) <3.0 ug/mL 50.0-100.0 LL B12 [id number] 16:57:00* Test Item Value Reference Range Interpretation Comme nts VIT B12 (test code = A60) 453.0 pg/mL 211.0-911.0 [id number] 16:44:00* Test Item Value Reference Range Interpretation Comme nts FOLATE (test code = A75) 23.0 ng/mL >=5.5 THYROID PANEL/SCREEN (TSH)2024-07-23 16:40:00* Test Item Value Reference Range Interpretation Comme nts TSH (test code = A57) 3.637 uIU/mL 0.550-4.780 [id number] 16:35:00* Test Item Value Reference Range Interpretation Comme nts PREALBUMIN (test code = 08E) 26 mg/dL 10-40 [id number] 16:35:00* Test Item Value Reference Range Interpretation Comme nts MAGNESIUM (test code = 48A) 2.1 mg/dL 1.6-2.6 LIPID [id number] 16:35:00* Test Item Value Reference Range Interpretation Comme nts CHOLESTROL (test code = 44A) 177 mg/dL <=199 TRIGLYCERI (test code = 42B) 118 mg/dL <=149 HDL (test code = 83D) 58.9 mg/dL 40.0-60.0 LDL (test code = 34B) 98 mg/dL <=99 CHL/HDL (test code = CHR) 3.0 0.0-3.4 CBC (INCLUDES AUTOMATED DIFFERENTIAL)2024-07-23 16:33:00* Test Item Value Reference Range Interpretation Comme nts WBC (test code = WBC) 11.8 10\\S\\3/uL 4.5-11.0 H RBC (test code = RBC) 4.08 10\\S\\6/uL 3.80-5.80 HGB (test code = HBG) 12.4 g/dL 12.0-15.5 HCT (test code = HCT) 37.3 % 35.0-44.0 MCV (test code = MCV) 91.4 fL 81.0-99.0 MCH (test code = MCH) 30.4 pg 27.0-31.0 MCHC (test code = MCHC) 33.2 g/dL 32.0-36.0 RDW (test code = RDW) 12.8 % 11.5-14.5 PLT (test code = PLT) 292 10\\S\\3/uL 130-400 MPV (test code = MPV) 10.0 fL 9.4-12.4 NEUTROP # (test code = NE#) 7.7 10\\S\\3/uL 1.6-8.0 LYMPH # (test code = LY#) 3.1 10\\S\\3/uL 1.1-3.5 MONOCYTE # (test code = MO#) 0.8 10\\S\\3/uL 0.0-1.1 EOSINOPH # (test code = EO#) 0.1 10\\S\\3/uL 0.0-0.7 BASOPHIL # (test code = BA#) 0.1 10\\S\\3/uL 0.0-0.3 IG # (test code = IG#) 0.03 10\\S\\3/uL 0.00-0.06 NRBC # (test code = NRBC#) 0.00 10\\S\\3/uL 0.00-0.01 NEUTROPH % (test code = NE%) 65.3 % 35.0-73.0 LYMPH % (test code = LY%) 25.8 % 20.0-55.0 MONO % (test code = MO%) 6.6 % 2.5-10.0 EOSINOPH % (test code = EO%) 1.1 % 0.0-5.0 BASOPHIL % (test code = BA%) 0.9 % 0.0-2.0 IG % (test code = IG%) 0.3 % 0.0-0.8 NRBC% (test code = NRBC%) 0.0 % 0.0-0.2 MANDIFF (test code = MDIFF) NO RBC MORPH (test code = RBCMOR) NORMAL NORMAL BASIC METABOLIC [id number] 16:32:00* Test Item Value Reference Range Interpretation Comme nts GLUCOSE (test code = 06D) 128 mg/dL 75-100 H SODIUM (test code = 01A) 143 mmol/L 136-145 POTASSIUM (test code = 01B) 3.6 mmol/L 3.6-5.1 CHLORIDE (test code = 04A) 109 mmol/L 98-107 H CO2 (test code = 02A) 25 mmol/L 20-31 ANION GAP (test code = ANG) 12.6 mmol/L BUN (test code = 05D) 16 mg/dL 9-23 CREATININE (test code = 03E) 0.7 mg/dL 0.6-1.0 GFR (test code = GFR) 88 mL/min/1.73m\\S\\2 >=90 L EGFR (test code = EGFR) eGFR BY CKD-EPI CALCULATION IS NOT RECOMMENDED FOR PATIENTS UNDER 18 YEARS OF AGE. BUN/CREA (test code = BCR) 23 12-20 H CALCIUM (test code = 09D) 9.5 mg/dL 8.3-10.6 [id number] 16:30:00* Test Item Value Reference Range Interpretation Comme [facility] Hb A1C % (test code = HBA) 5.4 % A1C % (test code = A1C) HbA1c (% ) Reference Range Normal <5.7 Prediabetes 5.7-6.4 Diabetic >=6.5 COMPREHENSIVE METABOLIC [id number] 09:28:00* Test Item Value Reference Range Interpretation Comme [facility] GLUCOSE (test code = 06D) 97 mg/dL 75-100 SODIUM (test code = 01A) 144 mmol/L 136-145 POTASSIUM (test code = 01B) 3.7 mmol/L 3.6-5.1 CHLORIDE (test code = 04A) 109 mmol/L 98-107 H CO2 (test code = 02A) 26 mmol/L 20-31 ANION GAP (test code = ANG) 12.7 mmol/L BUN (test code = 05D) 15 mg/dL 9-23 CREATININE (test code = 03E) 0.6 mg/dL 0.6-1.0 GFR (test code = GFR) 91 mL/min/1.73m\\S\\2 >=90 EGFR (test code = EGFR) eGFR BY CKD-EPI CALCULATION IS NOT RECOMMENDED FOR PATIENTS UNDER 18 YEARS OF AGE. BUN/CREA (test code = BCR) 25 12-20 H CALCIUM (test code = 09D) 9.5 mg/dL 8.3-10.6 BILI TOTAL (test code = 11A) 1.8 mg/dL 0.2-1.0 H PROTEIN (test code = 07D) 6.8 g/dL 5.7-8.2 ALBUMIN (test code = 08D) 4.9 g/dL 3.2-4.8 H GLOBULIN (test code = GLB) 1.9 g/dL 1.5-3.8 ALB/GLOB (test code = AGRR) 2.6 1.0-2.6 ALK PHOS (test code = 35A) 87 IU/L 46-116 AST (test code = 30A) 22 IU/L <=33 ALT (test code = 31A) 13 IU/L LIVER [id number] 09:28:00* Test Item Value Reference Range Interpretation Comme nts BILI TOTAL (test code = 11A) 1.8 mg/dL 0.2-1.0 H BILI DIRCT (test code = 12A) 0.5 mg/dL 0.0-0.3 H BILI INDIR (test code = BILII) 1.4 mg/dL <=0.8 H PROTEIN (test code = 07D) 6.8 g/dL 5.7-8.2 ALBUMIN (test code = 08D) 4.9 g/dL 3.2-4.8 H GLOBULIN (test code = GLB) 1.9 g/dL 1.5-3.8 ALB/GLOB (test code = AGRR) 2.6 1.0-2.6 ALK PHOS (test code = 35A) 87 IU/L 46-116 AST (test code = 30A) 22 IU/L <=33 ALT (test code = 31A) 13 IU/L [id number] 09:28:00* Test Item Value Reference Range Interpretation Comme nts ACETAMINPH (test code = 94M) <0.2 mg/dL 1.2-2.5 L SARS-CoV (RAPID ANTIGEN)2024-07-23 09:27:00* Test Item Value Reference Range Interpretation Comme nts SARS-CoV (ANTIGEN) (test code = COVAG) NEGATIVE NEGATIVE COVID AG (test code = COVAGC) This test has been marketed under the FDA Emergency Use Authorization (EUA) to meet challenges of the COVID-19 pandemic. The validation standards normally enforced by the FDA and the [employer] the [employer] [place] [employer] (CAP) are more stringent than those required for this test. Therefore, the result should be interpreted with caution and close attention to other clinical and epidemiological data ALCOHOL BLOOD (ETOH)2024-07-23 09:26:00* Test Item Value Reference Range Interpretation Comme nts ETOH (test code = HALC) ETHANOL * The result is to be used only for medical purposes ALCOHOL (test code = 56A) <10 mg/dL <=10 PRO TIME AND [id number] 09:26:00* Test Item Value Reference Range Interpretation Comme nts INR (test code = INR) 1.0 INRH (test code = INRH) SUGGESTED THERAPEUTIC RANGE FOR INR: 2.5 - 3.5 For Patients with Prosthetic Valves or Patients with recurrent Thromboembolic Events 2.0 - 3.0 For Most Other Applications PTT (test code = PTT) 29.4 s 20.2-38.0 PTTH (test code = PTTH) To monitor the effectiveness of heparin, we offer the Anti-Xa (Heparin Assay). It can be used for either unfractionated or LMW Heparin. Order Code is ANTI-XA URINALYSIS WITH [id number] 09:23:00* Test Item Value Reference Range Interpretation Comme nts COLOR (test code = COLU) YELLOW YELLOW CLARITY (test code = CLA) CLEAR CLEAR GLUCOSE UR (test code = UA GLUCOSE) NEGATIVE NEGATIVE BILI UR (test code = BILE) NEGATIVE NEGATIVE KETONES UR (test code = ALICIA) NEGATIVE NEGATIVE SP GRAVITY (test code = SPGR) 1.011 1.005-1.030 PH UR (test code = PH) 6.5 4.5-8.0 PROTEIN UR (test code = PU) NEGATIVE NEGATIVE UROBIL UR (test code = UROQ) 0.2 EU/dL 0.2-1.0 NITRITE UR (test code = NITRITE) NEGATIVE NEGATIVE BLOOD UR (test code = UA BLOOD) NEGATIVE NEGATIVE LEUK ES UR (test code = LEUK) 1+ NEGATIVE A WBC UR (test code = UWBC) 1 /HPF 0-5 RBC UR (test code = URBC) 0 /HPF 0-2 EPITH UR (test code = UEPC) FEW /LPF FEW BACTERIA UR (test code = UBACT) FEW /HPF NONE A CAST UR (test code = CAST) /LPF NONE CRYSTAL UR (test code = CRYU) / LPF NONE MUCUS UR (test code = MUC) / HPF NONE AMORPH UR (test code = GAVIOTA) / HPF NONE TRICH UR (test code = UTRICH) /HPF NONE YEAST UR (test code = UY) /HPF NONE SPERM UR (test code = USPERM) /HPF NONE CBC (INCLUDES AUTOMATED DIFFERENTIAL)2024-07-23 09:16:00* Test Item Value Reference Range Interpretation Comme nts WBC (test code = WBC) 7.7 10\\S\\3/uL 4.5-11.0 RBC (test code = RBC) 3.78 10\\S\\6/uL 3.80-5.80 L HGB (test code = HBG) 11.6 g/dL 12.0-15.5 L HCT (test code = HCT) 34.3 % 35.0-44.0 L MCV (test code = MCV) 90.7 fL 81.0-99.0 MCH (test code = MCH) 30.7 pg 27.0-31.0 MCHC (test code = MCHC) 33.8 g/dL 32.0-36.0 RDW (test code = RDW) 13.0 % 11.5-14.5 PLT (test code = PLT) 271 10\\S\\3/uL 130-400 MPV (test code = MPV) 10.5 fL 9.4-12.4 NEUTROP # (test code = NE#) 4.6 10\\S\\3/uL 1.6-8.0 LYMPH # (test code = LY#) 2.2 10\\S\\3/uL 1.1-3.5 MONOCYTE # (test code = MO#) 0.6 10\\S\\3/uL 0.0-1.1 EOSINOPH # (test code = EO#) 0.1 10\\S\\3/uL 0.0-0.7 BASOPHIL # (test code = BA#) 0.1 10\\S\\3/uL 0.0-0.3 IG # (test code = IG#) 0.03 10\\S\\3/uL 0.00-0.06 NRBC # (test code = NRBC#) 0.00 10\\S\\3/uL 0.00-0.01 NEUTROPH % (test code = NE%) 60.0 % 35.0-73.0 LYMPH % (test code = LY%) 29.1 % 20.0-55.0 MONO % (test code = MO%) 7.7 % 2.5-10.0 EOSINOPH % (test code = EO%) 1.8 % 0.0-5.0 BASOPHIL % (test code = BA%) 1.0 % 0.0-2.0 IG % (test code = IG%) 0.4 % 0.0-0.8 NRBC% (test code = NRBC%) 0.0 % 0.0-0.2 MANDIFF (test code = MDIFF) NO RBC MORPH (test code = RBCMOR) NORMAL AMMONIA [id number] 09:15:00* Test Item Value Reference Range Interpretation Comme nts AMMONIA (test code = 54A) 26 umol/L 11-32 [id number] 09:15:00* Test Item Value Reference Range Interpretation Comme nts SALICYLATE (test code = 94B) <3.0 mg/dL 15.0-30.0 L DRUGS OF [id number] 09:14:00* Test Item Value Reference Range Interpretation Comme nts DRUG SCRN (test code = HDOA) URINE DRUG SCREEN This is an unconfirmed screening result and should not be used for non-medical purposes CANNABINOD (test code = 88C) NEGATIVE NEGATIVE AMPHETAMINE (test code = 84A) NEGATIVE NEGATIVE BENZODIAZP (test code = 86A) NEGATIVE NEGATIVE BARBITURAT (test code = 85A) NEGATIVE NEGATIVE OPIATES (test code = 92B) NEGATIVE NEGATIVE COCAINE (test code = 87A) NEGATIVE NEGATIVE PHENCYCLID (test code = 66A) NEGATIVE NEGATIVE METHADONE (test code = 64A) NEGATIVE NEGATIVE DOAH (test code = DOAH.) URINE DRUGSCREEN Cut-off values are as follows: Cannabinoids 50 ng/mL Cocaine 300 ng/mL Amphetamines 1000 ng/mL Phencyclidine 25 ng/mL Benzodiazepines 200 ng.mL Methadone 300 ng/mL Barbiturates 200 ng/mL Opiates 300 ng/mL CARDIAC [id number] 09:14:00* Test Item Value Reference Range Interpretation Comme nts TROPONIN I (test code = A84) 7.92 pg/mL 0.00-45.20 CARDIO IQ APOE [id number] 17:25:00* Test Item Value Reference Range Interpretation Comments APOE GENOTYPE (test code = 55947-8) 3/3 COMMENTS (test code = 8251-1) See Below Apo E3 Carrier. ?Most common (normal) genotype. ?SeeGuidance Statements. LIMITATIONS (test code = 33896-6) See Below Although rare, f alse positive or false negative results mayoccur. All results should be interpreted in context ofclinical findings, relevant history, and other laboratorydata. This test was developed and its analytical performancecharacteristics have been determined by [facility]. It has not beencleared or approved by FDA. This assay has been validatedpursuant to the CLIA regulations and is used for clinicalpurposes. REPORT COMMENT:FASTING:NO REVIEWER (test code = 23517-7) See Below Laboratory resul ts reviewed and released by [facility]. METHOD (test code = 39239-4) See Below Real-Time Polyme rase Chain Reaction (PCR). Analyticsensitivity and specificity of the genetic assays using thisplatform exceed 99.9%. RAC (test code = RAC) Performing Organization Information: ? ?Site ID: EZ ? ?Name: [facility] ? ?Address: [address] [place] [address] ? ?Director: SHARON BOWERS MD,PHD ,LEIL[place] HealthMethylmalonic acid, [id number] 00:01:00* Test Item Value Reference Range Interpretation Comments METHYLMALONIC ACID, SERUM (test code = 93734-1) 235 nmol/L 87-318 This test was de veloped and its analytical performancecharacteristics have been determined by [employer].It has not been cleared or approved by FDA. This assay hasbeen validated pursuant to the CLIA regulations and is usedfor clinical purposes. REPORT COMMENT:FASTING:NO RAC (test code = RAC) Performing Organization Information: ? ?Site ID: EZ ? ?Name: [facility] ? ?Address: [address] [place] [phone] ? ?Director: SHARON BOWERS MD,PHD ,LEILA [facility]man[facility]ITAMIN B12 AND FOLATE PANEL, [id number] 04:59:00* Test Item Value Reference Range Interpretation Comme nts VITAMIN B12 (test code = 2132-9) 740 pg/mL 200-1100 FOLATE, SERUM (test code = 2284-8) 12.5 ng/mL ? Reference Range ? Low: ? <3.4 ? Borderline: ? ?3.4-5.4 ? Normal: ?>5.4 REPORT COMMENT:FASTING:N O RAC (test code = RAC) Performing Organization Information: ? ?Site ID: RGA ? ?Name: [facility] [place] [facility] ? ?Address: [address] [place] [phone] ? ?Director: KEIRA ARREGUIN MD,PHD. [id number] 04:59:00* Test Item Value Reference Range Interpretation Comme nts TSH (test code = 3016-3) 3.15 0.40-4.50 RAC (test code = RAC) Performing Organization Information: ? ?Site ID: RGA ? ?Name: [facility] [place] [facility] ? ?Address: [address] [place] [phone] ? ?Director: KEIRA ARREGUIN MD,PHD. [facility] Molecular [id number] 20:49:25* Test Item Value Reference Range Interpretation Comme nts POCT Molecular FluA (test co de = 76462-1) Negative Negative POCT Molecular FluB (test co de = 06565-1) Negative Negative Lab Interpretation (test cod e = 03975-6) Normal [facility] SARS-COV-2 ANTIGEN (BINAX NOW)2023-09-25 20:41:00* Test Item Value Reference Range Interpretation Comme nts POCT SARS-COV-2 ANTIGEN (test code = 22202-7) Positive Not Detected A On board controls acceptable with C Line (test code = 3574) Yes SANDI (test code = SANDI) accurate developme nt and interpretation of all internal controls Lab Interpretation (test code = 27524-3) Abnormal [facility] URINALYSIS W SPECIFIC [id number] 19:40:00* Test Item Value Reference Range Interpretation Comme nts POCT U SP GRAV (test code = 3255) 1.005 mg/dl 1.005-1.025 POCT PH U (test code = 3254) 7 mg/dl 5-8 POCT U LEUK EST (test code = 3263) neg Negative - Negative POCT U NIT (test code = 3262) neg Negative - Negative POCT U PROT (test code = 3259) neg Negative - Negative POCT U GLU (test code = 3256) normal Negative - Negative POCT U KETONE (test code = 3258) neg Negative - Negative POCT U UROBILI (test code = 3260) normal 0.2-1 POCT U BILI (test code = 3261) neg Negative - Negative POCT U BLD (test code = 3257) trace Negative - Negative POCT U COLOR (test code = 3266) yellow POCT U APPEAR (test code = 3267) clear SANDI (test code = SANDI) accurate developme nt and interpretation of all internal controls Lab Interpretation (test code = 49658-5) Normal [facility] Notes Date/Time Note Provider Source 2024-07-10 09:33:34 Patient here with daughter. Patient states that she has not had her medications for two days because ever since her about one year ago her other daughter has been controlling. The other daughter is now AFSHAN for past two days and medications are stored in an automatic 30 day container that opens automatically each day, they can here the alarm but can not locate the pill container, and cannot reach the daughter that takes of that to ask her where it is. Patient's daughter that is here now says the last time this happened it had been about two weeks without meds. Patient is complaining of headache. Juancarlos Melton RN [facility] 2024-07-10 09:28:00 [facility] Emergency Department Note Patient Name: Melissa Juan Date of : 1945 78 year old female Treatment Room: Room/bed info not found Primary Care Physician: PATIENT DOES NOT HAVE A PCP Patient Escorted by: Family [5] Mode of Arrival: Personal means [1] EMS Treatment Prior to ED Arrival: TONG SETTER treatment: None Travel and Exposure Screening: Symptoms Does patient have any of these symptoms?: (not recorded) Exposure Screening Has patient had contact with someone with a communicable disease in the last month?: (not recorded) Diseases exposed to:: (not recorded) Is Patient ?: (not recorded) Exposure Date: (not recorded) Chief Complaint: Chief Complaint Patient presents with Hypertension History of Present Illness: Daily medications for hypertension and hypothyroidism are either misplaced or lost. Last dose was 3 days ago. Has noted blood pressure drifting upward. No acute symptoms. History provided by: Patient and relative (Daughter) Past Medical History/Immunizations: Past Medical History: Diagnosis Date Essential (primary) hypertension Hypothyroidism Tetanus received in last 5 years: Unknown Allergies: No Known Allergies Past Social History: Tobacco Use Never smoked or used smokeless tobacco. Passive Exposure: Never Past Surgical History: History reviewed. No pertinent surgical history. Review of Systems: Review of Systems Constitutional: Negative. HENT: Negative. Eyes: Negative. Respiratory: Negative. Cardiovascular: Negative. Gastrointestinal: Negative. Genitourinary: Negative. Musculoskeletal: Negative. Skin: Negative. Neurological: Positive for headaches (mild, similar to prior). Psychiatric/Behavioral: Negative. Physical Exam: ED Triage Vitals Weight 07/10/24 0936 49.8 kg (109 lb 12.8 oz) Actual or estimated 07/10/24 0936 Actual Height 07/10/24 0935 1.6 m (5' 3") BP 07/10/24 0935 (!) 196/93 Pulse 07/10/24 0935 68 Resp 07/10/24 0935 20 Temp 07/10/24 0935 36.6 ?C (97.9 ?F) Temp source 07/10/24 0935 Oral SpO2 07/10/24 0935 100 % Measured on -- Physical Exam Vitals and nursing note reviewed. Constitutional: General: She is not in acute distress. Appearance: Normal appearance. She is not ill-appearing, toxic-appearing or diaphoretic. HENT: Head: Normocephalic and atraumatic. Right Ear: External ear normal. Left Ear: External ear normal. Nose: Nose normal. Mouth/Throat: Mouth: Mucous membranes are moist. Eyes: Conjunctiva/sclera: Conjunctivae normal. Cardiovascular: Rate and Rhythm: Normal rate and regular rhythm. Pulmonary: Effort: Pulmonary effort is normal. Breath sounds: Normal breath sounds. Abdominal: General: There is no distension. Palpations: Abdomen is soft. Tenderness: There is no abdominal tenderness. Musculoskeletal: General: Normal range of motion. Right lower leg: No edema. Left lower leg: No edema. Skin: General: Skin is warm and dry. Neurological: General: No focal deficit present. Mental Status: She is alert. Psychiatric: Mood and Affect: Mood normal. Behavior: Behavior normal. Thought Content: Thought content normal. Judgment: Judgment normal. Radiology: No orders to display Lab Results: Lab Results - No data to display EKG: If EKG completed, see Procedure Note. Orders and Treatments: No orders of the defined types were placed in this encounter. Orders Placed This Encounter Medications amLODIPine (NORVASC) tablet 5 mg lisinopriL (PRINIVIL,ZESTRIL) tablet 30 mg levothyroxine (SYNTHROID) tablet 50 mcg amLODIPine 5 mg tablet lisinopriL 30 mg tablet levothyroxine 50 mcg tablet First Provider Eval: ED Events Date/Time Event User Comments 07/10/24930 Medical Screening Begins TRE NATHAN MD -- 07/10/24930 First Provider Evaluation TRE NATHAN MD -- ED COURSE Diagnosis/Impression as of 07/10/24 0959 Primary hypertension Hypothyroidism, unspecified type Medication refill Procedures: Procedures MDM: Medical Decision Making Primary impression: essential hypertension Secondary impression: hypothyroidism, medication refill Problems Addressed: Hypothyroidism, unspecified type: chronic illness or injury Medication refill: self-limited or minor problem Primary hypertension: acute illness or injury Amount and/or Complexity of Data Reviewed Independent Historian: Details: Self, daughter Labs: Details: N/a Radiology: Details: N/a ECG/medicine tests: Details: N/a Discussion of management or test interpretation with external provider(s): N/a Risk Prescription drug management. Risk Details: Unremarkable OBS in ED. No acute symptoms suggestive of acute end organ failure / damage. Exam is unremarkable. Discussed options that include extensive workup in ED for acute blood pressure assessment including EKG, serum studies, CT Head. She declines, preferring simply refill of medications that have been misplaced last 3 days. Daughter agrees. Patient and daughter appear to have appropriate medical decision making capacity. Findings and plan discussed with patient. No findings that require acute hospitalization today. Today's dose of each medication administered in ED. 1-month rx sent to preferred pharmacy. She has a PCP in [place]. Today is Thursday. Flowsheet Documentation: Scoring Tools: No data recorded Disposition/Condition: ED Disposition ED Disposition Disch - Home Condition Stable Comment -- Discharge Medications: Patient's Medications START taking these medications AMLODIPINE 5 MG TABLET Take 1 tablet by mouth in the morning. LEVOTHYROXINE 50 MCG TABLET Take 1 tablet by mouth every morning. LISINOPRIL 30 MG TABLET Take 1 tablet by mouth in the morning. CONTINUE taking these medications which have NOT CHANGED AMOXICILLIN 500 MG CAPSULE Take 1 capsule by mouth in the morning and 1 capsule at noon and 1 capsule in the evening. NIRMATRELVIR-RITONAVIR (PAXLOVID) 300 MG (150 MG X 2)-100 MG TABLET Take 3 tablets by mouth in the morning and 3 tablets in the evening. PROPRANOLOL 10 MG TABLET Take 1 tablet by mouth in the morning and 1 tablet in the evening. START taking Modified Medications as Prescribed No medications on file STOP taking these medications No medications on file Follow-up: PCP Electronically signed by: Tre Nathan MD 07/10/24 0959 T [facility]
[2024-12-17 02:55] LABS: Absolute Lymphocytes (CBC) 1.2 K/uL (0.7-4.9); Absolute Monocytes 0.8 K/uL (0.1-1.3); Absolute Neutrophil 3.2 K/uL (1.8-8.0); Basophils % 0.6 % (0-1.3); Eosinophils % 0.7 % (0-4.4); Hematocrit 28.1 % (36.0-45.0); Lymphocytes % 22.7 % (15.3-44.8); MCH 31.5 pg (27.0-35.0); MCHC 35.6 g/dL (32.0-36.0); MCV 88.5 fL (80-100); Nucleated Red Blood Cells % 0.2 % (0-0); Platelets 161 thou/uL (152-406); RBC Red Blood Cell Count 3.17 M/uL (3.86-4.86); Red Cell Distribution Width 13.4 % (12.1-15.2)
[2024-12-17 03:01] LABS: PT Prothrombin Time 12.2 SECONDS (10.0-13.0); PTT, Activated Partial Thromb 27.6 SECONDS (24.3-36.9); Protime INR 1.07
[2024-12-17 03:06] LABS: Albumin 3.1 g/dL (3.4-5.0); Albumin/Globulin Ratio 1.1 (1.1-1.8); Anion Gap 11.4 mEq/L (5.0-15.0); Bilirubin Direct 0.2 mg/dL (0-0.2); Bilirubin Indirect, Calculated 0.6 mg/dL (0.2-0.8); Bilirubin Total 0.8 mg/dL (0.2-1.0); Globulin 2.9 g/dL (2.3-3.5); Magnesium 1.9 mg/dL (1.6-2.4); Potassium 3.4 mEq/L (3.5-5.1); Troponin High Sensitivity 6.2 pg/mL (<58.9)
[2024-12-17] MEDS ORDERED: NA CHLORIDE 0.9% 500 ML ONE (03:26)
[2024-12-17] MEDS ORDERED: LIDOCAINE 1% 20 ML MDV ONE (03:26)
[2024-12-17] MEDS ORDERED: DERMABOND SKIN ADHESIVE TOP ONE (03:56)
[2024-12-17 04:12] LABS: Specific Gravity 1.019 (1.005-1.030); Sqamous Epithelial None Seen /HPF (None Seen); Urine Bacteria None Seen /HPF (<20); Urine Bilirubin NEGATIVE (Negative); Urine Blood Trace (Negative); Urine Clarity Turbid (Clear); Urine Color Light-Yellow (Yellow); Urine Culture Reflex Order NOT NEEDED; Urine Glucose NEGATIVE (Negative); Urine Ketones NEGATIVE (Negative); Urine Microscopic Reflex YN ORDER UMIC; Urine Mucus Slight /HPF (None Seen); Urine Nitrite NEGATIVE (Negative); Urine Protein TRACE (Negative); Urine RBC <5 /HPF (None Seen); Urine Urobilinogen Normal (Normal); Urine WBC <5 /HPF (<5); Urine WBC Clump Rare /HPF (None Seen); Urine pH 5.5 (5.0-7.0)
--- NOTE | 2024-12-17 05:50 | RAD REPORT ---
EXAM: CT Head and Cervical Spine Without Intravenous Contrast CLINICAL HISTORY: The patient is 79 years old and is Female; fall head injury TECHNIQUE: Axial computed tomography images of the head/brain and cervical spine without intravenou s contrast. Sagittal and coronal reformatted images were created and reviewed. This CT exam was performed using one or more of the following dose reduction techniques: automated exposure control, adjustment of the mA and/or kV according to patient size, and/or use of iterative reconstruction technique. COMPARISON: No relevant prior studies available. FINDINGS: Brain: Unremarkable. No hemorrhage. No significant white matter disease. No edema. Ventricles: Unremarkable. No ventriculomegaly. Skull: No acute fracture. Sinuses: Unremarkable as visualized. No acute sinusitis. Mastoid air cells: Unremarkable as visualized. No mastoid effusion. Vertebrae: No acute fracture or subluxation. Discs/spinal canal/neural foramina: Multilevel disc space narrowing with degenerative endplate ch anges. Soft tissues: Unremarkable. IMPRESSION: No acute intracranial abnormality. No acute findings in the cervical spine. Electronically signed by: Demarco Nguyen MD 12/17/2024 05:46 AM [facility] 8 Due to temporary technical issues with the PACS/[employer] reporting system, reports are being nguyễn d by the in-house radiologist without review as a courtesy to ensure prompt reporting the interpreting radiologist is fully responsible for the content of the report. Transcribed Date/Time: 12/17/2024 5:50 AM
--- NOTE | 2024-12-17 06:03 | RAD REPORT ---
EXAM: XR Chest, 1 View CLINICAL HISTORY: The patient is 79 years old and is Female; syncope, fall TECHNIQUE: Frontal view of the chest. COMPARISON: No relevant prior studies available. FINDINGS: Lungs: Unremarkable. No consolidation. Pleural space: Unremarkable. No pneumothorax. Heart: Unremarkable. Mediastinum: Unremarkable. Normal mediastinal contour. Bones/joints: No acute findings. IMPRESSION: No acute findings in the chest. Electronically signed by: Demarco Nguyen MD 12/17/2024 05:21 AM [facility] 8 Due to temporary technical issues with the PACS/[employer] reporting system, reports are being nguyễn d by the in-house radiologist without review as a courtesy to ensure prompt reporting the interpreting radiologist is fully responsible for the content of the report. Transcribed Date/Time: 12/17/2024 6:02 AM
--- NOTE | 2024-12-17 06:03 | RAD REPORT ---
EXAM: XR Pelvis, 1 or 2 Views CLINICAL HISTORY: The patient is 79 years old and is Female; syncope, fall TECHNIQUE: Single frontal view of the pelvis. COMPARISON: No relevant prior studies available. FINDINGS: Bones/joints: No definite acute fracture. Bone demineralization. No significant arthropathy in the hips. No dislocation. Soft tissues: Unremarkable. IMPRESSION: No acute findings in the pelvis. Electronically signed by: Shae Campos MD 12/17/2024 05:36 AM [facility] V2 Due to temporary technical issues with the PACS/[employer] reporting system, reports are being nguyễn d by the in-house radiologist without review as a courtesy to ensure prompt reporting the interpreting radiologist is fully responsible for the content of the report. Transcribed Date/Time: 12/17/2024 6:03 AM
--- NOTE | 2024-12-17 06:04 | RAD REPORT ---
EXAM: XR Left Wrist Complete, 3 or More Views CLINICAL HISTORY: The patient is 79 years old and is Female; PAIN TECHNIQUE: Three views of the left wrist. COMPARISON: No relevant prior studies available. FINDINGS: Bones/joints: Lateral intercarpal degenerative changes. Diffuse bone demineralization. no acute fracture or dislocation. Soft tissues: Unremarkable. No radiopaque foreign body. IMPRESSION: No acute findings in the left wrist. Electronically signed by: Shae Campos MD 12/17/2024 05:35 AM [facility] V2 Due to temporary technical issues with the PACS/[employer] reporting system, reports are being nguyễn d by the in-house radiologist without review as a courtesy to ensure prompt reporting the interpreting radiologist is fully responsible for the content of the report. Transcribed Date/Time: 12/17/2024 6:04 AM
--- NOTE | 2024-12-17 06:05 | EDPHYS ---
Physician Documentation [facility] Name: Nathalie Wintre Age: 79 yrs Sex: Female : 1945 Arrival Date: 12/17/2024 Time: 02:13 Bed 5 Private MD: ED Physician Eamon Galvin HPI: 12/17 02:53 This 79 yrs old Female presents to ER via EMS with complaints of head injury. rn 02:53 The patient or guardian reports injury, pain. The complaints affect the. The complaints rn affect the forehead. Onset: The symptoms/episode began/occurred today. Severity of symptoms: At their worst the symptoms were mild, in the emergency department the symptoms are unchanged. It is unknown whether or not the patient has had similar symptoms in the past. EMS reports fall x 2 at intermediate. First fall was unwitnessed and sustained laceration to the right forehead. Later patient was walking out of room when found by staff with dried blood on laceration. Patient was noted to have a syncopal episode at that time. No seizure activity. No known fever.. Historical: - Allergies: 02:19 No Known Allergies; ha1 - PMHx: 02:19 Hypertension; Hypothyroidism; Dementia; ha1 - Immunization history:: Adult Immunizations up to date. - Infectious Disease History:: Denies. - Social history:: Smoking status: unknown. - Family history:: not pertinent. - Hospitalizations: : No recent hospitalization is reported. ROS: 02:53 Unable to obtain ROS due to baseline dementia, rn Exam: 02:53 Constitutional: This is a well developed, well nourished patient who is awake, alert, rn and in no acute distress. Head/Face: Normocephalic, 3 cm superficial laceration to the right forehead. Dried blood noted, no active bleeding Neck: No midline cervical tenderness Chest/axilla: No rib tenderness or crepitus Cardiovascular: Regular rate and rhythm. No pulse deficits. Respiratory: No increased work of breathing, no retractions or nasal flaring. Abdomen/GI: Soft, non-tender MS/ Extremity: Pulses equal, no cyanosis. Neurovascular intact. No gross deformities of either extremity. Grimaces with mild pain with range of motion of bilateral hips Neuro: Awake, responds to pain 05:12 ECG was reviewed by the Attending Physician. rn Vital Signs: 02:35 BP 109 / 58; Pulse 62; Resp 15 S; Temp 97.6(O); Pulse Ox 98% on R/A; Weight 56.9 kg; ha1 Height 5 ft. 1 in. ; 03:40 BP 125 / 61; Pulse 67; Resp 16; Pulse Ox 96% on R/A; kd3 04:09 BP 147 / 66; Pulse 64; Resp 17 S; Pulse Ox 99% on R/A; ha1 05:15 BP 137 / 67; Pulse 84; Resp 18; Pulse Ox 100% on R/A; kd3 02:35 Body Mass Index 23.70 (56.90 kg, 154.94 cm) ha1 [place] Coma Score: 06:02 Eye Response: spontaneous(4). Motor Response: obeys commands(6). Verbal Response: rn oriented(5). Total: 15. Laceration: 04:01 Wound Repair of 3cm ( 1.2in ) subcutaneous laceration to forehead. Distal rn neuro/vascular/tendon intact. Wound prep: Extensive cleansing by nurse, Wound irrigation by nurse, Wound explored extensively. Skin closed with 1 thin layer Adhesive skin closure using Dermabond. Dressed with steri-strips. Patient tolerated well. MDM: 02:19 Medical Screening Exam initiated rn 04:13 ED course: Patient much more alert with IV fluids. Still waiting on imaging results. rn Patient states recalls what happened, states he tripped over something and struck head on something in the kitchen. Denies pain anywhere other than the forehead. So far blood work and urine studies without acute findings or emergent findings. Stable vital signs. Mental status improving. Wound closed.. 06:02 Differential diagnosis: Contusion of Hematoma on Laceration of Intracranial bleed- rn Concussion cerebral contusion. Data reviewed: vital signs, nurses notes, lab test result(s), EKG, radiologic studies, CT scan, plain films, and as a result, I will discharge patient. Counseling: I had a detailed discussion with the patient and/or guardian regarding the historical points, exam findings, and any diagnostic results supporting the discharge/admit diagnosis, the presence of at least one elevated blood pressure reading (>120/80) during this emergency department visit, lab results, radiology results, the need for outpatient follow up, to return to the emergency department if symptoms worsen or persist or if there are any questions or concerns that arise at home. Response to treatment: the patient's symptoms have markedly improved after treatment, and as a result, I will discharge patient. ED course: No acute findings in x-rays or CT head/C-spine. Patient was mildly dehydrated which is not surprising with dementia. No evidence of infection and negative urinalysis. Wounds cleaned and dressed. Wound to forehead closed with Dermabond and tolerated well. Gave results to family and went over results. I have personally reviewed all of the results, including but not limited to blood tests and imaging deemed necessary to safely discharge this patient at this time. All results given to and printed out for patient. I personally went over all the results with the patient and answered all questions. Patient will follow-up with PCP and or specialist as discussed. Return precautions given and understood.. 12/17 02:20 Order name: Basic Metabolic Panel; Complete Time: 03:07 rn 12/17 02:20 Order name: CBC with Diff; Complete Time: 03: rn 12/17 02:20 Order name: Hepatic Function; Complete Time: 03: rn 12/17 02:20 Order name: Magnesium; Complete Time: 03: rn 12/17 02:20 Order name: Protime (+inr); Complete Time: 03: rn 12/17 02:20 Order name: Ptt, Activated; Complete Time: 03: rn 12/17 02:20 Order name: Troponin High Sensitivity; Complete Time: 03:07 rn 12/17 02:20 Order name: BNP; Complete Time: 03:07 rn 12/17 02:20 Order name: Urinalysis w/ reflexes; Complete Time: 04:13 rn 12/17 02:20 Order name: CT Head C Spine rn 12/17 02:20 Order name: Chest Single View XRAY rn 12/17 02:20 Order name: XRAY Pelvis rn 12/17 02:49 Order name: XRAY Wrist LEFT 3 view rn 12/17 02:49 Order name: XRAY Hand LEFT 3 View rn 12/17 02:20 Order name: Cardiac monitoring; Complete Time: 02:29 rn 12/17 02:20 Order name: EKG - Nurse/Tech; Complete Time: 02:29 rn 12/17 02:20 Order name: IV Saline Lock; Complete Time: 02:29 rn 12/17 02:20 Order name: Labs collected and sent; Complete Time: 02: rn 12/17 02:20 Order name: NPO; Complete Time: 02:35 rn 12/17 02:20 Order name: O2 Per Protocol; Complete Time: : rn 12/17 02:20 Order name: O2 Sat Monitoring; Complete Time: 02: rn 12/17 02:21 Order name: Wound Care; Complete Time: 04: rn 12/17 04:08 Order name: Dermabond; Complete Time: 04:08 ha1 EC:12 Rate is 65 beats/min. Rhythm is regular. QRS [place] is Normal. WA interval is prolonged. rn QRS interval is prolonged at 138 msec. QT interval is normal. No Q waves. T waves are Normal. No ST changes noted. Clinical impression: 1st degree heart block. Interpreted by me. Reviewed by me. Administered Medications: 03:36 Drug: NS 0.9% IV 500 ml 500 ml IV at 1 bolus once; to be given as a bolus over 30 ha1 minutes Volume: 500 ml; Route: IV; Rate: 1 bolus; Site: right antecubital; 04:00 Follow up: Response: No adverse reaction; IV Status: Completed infusion; IV Intake: ha1 500ml Disposition Summary: 12/17/24 06:04 Discharge Ordered Notes: Location: Home rn Problem: new rn Symptoms: have improved rn Condition: Stable rn Diagnosis - Laceration without foreign body of unspecified part of head rn - Fall on same level, unspecified rn - Dehydration rn - Abrasion of left hand rn Followup: rn - With: Private Physician - When: As needed - Reason: Recheck today's complaints, Re-evaluation by your physician Discharge Instructions: - Discharge Summary Sheet rn - Abrasion rn - Dehydration, Elderly rn - Facial Laceration rn Forms: - Medication Reconciliation Form rn - Antibiotic 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 EDMS EDMS 02:21 02:21 Chest Single View+RAD.RAD.BRZ ordered. EDMS EDMS 02: 02:21 Pelvis+RAD.RAD.BRZ ordered. EDMS EDMS 02: 02:21 PROBNP+C.LAB.BRZ ordered. EDMS EDMS 02: 02:21 Urinalysis+U.LAB.BRZ ordered. EDMS EDMS 02:49 02:49 Hand Left 3 View+RAD.RAD.BRZ ordered. EDMS EDMS
--- NOTE | 2024-12-17 06:05 | ER ---
Nurse's Notes [facility] Name: Nathalie Winter Age: 79 yrs Sex: Female : 1945 Arrival Date: 12/17/2024 Time: 02:13 Bed 5 Private MD: Diagnosis: Laceration without foreign body of unspecified part of head;Fall on same level, unspecified;Dehydration;Abrasion of left hand Presentation: 12/17 02:19 Chief complaint: Patient states: COMING FROM [facility]. EPISODE OF ha1 SYNCOPE , UNWITNESSED FALL PREVIOUSLY. UNKNOWN LOC. 02:19 Coronavirus screen: Client denies travel out of the [place] in the last 14 days. Ebola ha1 Screen: No symptoms or risks identified at this time. Initial Sepsis Screen: Does the patient meet any 2 criteria? No. Patient's initial sepsis screen is negative. Does the patient have a suspected source of infection? No. Patient's initial sepsis screen is negative. Risk Assessment: Do you want to hurt yourself or someone else? Patient reports no desire to harm self or others. Onset of symptoms was December 17, 2024. 02:19 Method Of Arrival: EMS: [facility] ha1 02:19 Acuity: FRANCI 3 ha1 Triage Assessment: 02:19 General: Appears uncomfortable, Behavior is cooperative. Pain: Complains of pain in ha1 FOREHEAD, LEFT LAND, AND RIGHT HIP. Neuro: Level of Consciousness is awake, alert, obeys commands, Oriented to person, place, Facial symmetry appears normal, Pupils are PERRLA. Cardiovascular: Capillary refill < 3 seconds Patient's skin is warm and dry. Respiratory: Airway is patent Respiratory effort is even, unlabored, Respiratory pattern is regular, symmetrical. GI: Abdomen is round non-distended. : No signs and/or symptoms were reported regarding the genitourinary system. Derm: Skin is normal. Musculoskeletal: Circulation, motion, and sensation intact. Reports pain in left hand and right hip. Historical: - Allergies: 02:19 No Known Allergies; ha1 - PMHx: 02:19 Hypertension; Hypothyroidism; Dementia; ha1 - Immunization history:: Adult Immunizations up to date. - Infectious Disease History:: Denies. - Social history:: Smoking status: unknown. - Family history:: not pertinent. - Hospitalizations: : No recent hospitalization is reported. Screenin:59 [facility] ED Fall Risk Assessment (Adult) History of falling in the last 3 months, ha1 including since admission Yes- single mechanical fall (1 pt) Confusion or Disorientation Yes (5 pts) Intoxicated or Sedated No (0 pts) Impaired Gait Yes (1 pt) Mobility Assist Device Used Yes (1 pt) Altered Elimination Yes (1 pt) Score/Fall Risk Level 3 or more points = High Risk Oriented to surroundings, Maintained a safe environment, Educated pt \T\ family on fall prevention, incl call for assistance when getting out of bed, Hourly rounding (assess needs \T\ fall precautionary measures) done. Abuse screen: Denies threats or abuse. Denies injuries from another. Nutritional screening: No deficits noted. Tuberculosis screening: No symptoms or risk factors identified. Assessment: 02:19 Reassessment: see triage assessment. ha1 03:20 Reassessment: Patient and/or family updated on plan of care and expected duration. Pain ha1 level reassessed. 04:09 Reassessment: Patient and/or family updated on plan of care and expected duration. Pain ha1 level reassessed. 05:30 Reassessment: Patient and/or family updated on plan of care and expected duration. Pain ha1 level reassessed. Vital Signs: 02:35 BP 109 / 58; Pulse 62; Resp 15 S; Temp 97.6(O); Pulse Ox 98% on R/A; Weight 56.9 kg; ha1 Height 5 ft. 1 in. ; 03:40 BP 125 / 61; Pulse 67; Resp 16; Pulse Ox 96% on R/A; kd3 04:09 BP 147 / 66; Pulse 64; Resp 17 S; Pulse Ox 99% on R/A; ha1 05:15 BP 137 / 67; Pulse 84; Resp 18; Pulse Ox 100% on R/A; kd3 02:35 Body Mass Index 23.70 (56.90 kg, 154.94 cm) ha1 [place] Coma Score: 06:02 Eye Response: spontaneous(4). Motor Response: obeys commands(6). Verbal Response: rn oriented(5). Total: 15. ED Course: 02:19 Patient arrived in ED. rn 02:19 Eamon Galvin MD is Attending Physician. rn 02:19 Maintain EMS IV. Dressing intact. Good blood return noted. Site clean \T\ dry. Gauge \T\ gonzalez 1 site: 20 gauge RAC . Flushed with 10 mL NS. 02:19 Arm band placed on right wrist. ha1 02:19 Patient has correct armband on for positive identification. Placed in gown. Bed in low ha1 position. Call light in reach. Side rails up X2. Adult w/ patient. 02:19 Provided Education on: plan of care and wound care . ha1 02:34 BNP Sent. ha1 02:35 Basic Metabolic Panel Sent. ha1 02:35 CBC with Diff Sent. ha1 02:35 Hepatic Function Sent. ha1 02:35 Magnesium Sent. ha1 02:35 Protime (+inr) Sent. ha1 02:35 Ptt, Activated Sent. ha1 02:35 Troponin High Sensitivity Sent. ha1 02:52 Triage completed. ha1 03:03 CT Head C Spine In Process Unspecified. EDMS 03:35 Chest Single View XRAY In Process Unspecified. EDMS 03:35 XRAY Pelvis In Process Unspecified. EDMS 03:36 XRAY Wrist LEFT 3 view In Process Unspecified. EDMS 03:36 XRAY Hand LEFT 3 View In Process Unspecified. EDMS 03:40 Laurie Anne, CHAYO is Primary Nurse. kd3 03:45 X-ray completed. Portable x-ray completed in exam room. Patient tolerated procedure mh1 well. 06:30 No provider procedures requiring assistance completed. IV discontinued, intact, ha1 bleeding controlled, No redness/swelling at site. Pressure dressing applied. Administered Medications: 03:36 Drug: NS 0.9% IV 500 ml 500 ml IV at 1 bolus once; to be given as a bolus over 30 ha1 minutes Volume: 500 ml; Route: IV; Rate: 1 bolus; Site: right antecubital; 04:00 Follow up: Response: No adverse reaction; IV Status: Completed infusion; IV Intake: ha1 500ml Medication: 03:00 VIS not applicable for this client. ha1 Intake: 04:00 IV: 500ml; Total: 500ml. ha1 Outcome: 06:04 Discharge ordered by rn 06:31 Discharged to home via wheelchair, with family, ha1 06:31 Condition: stable 06:31 Discharge instructions given to patient, Instructed on discharge instructions, follow up and referral plans. Demonstrated understanding of instructions, follow-up care, 06:32 Patient left the ED. ha1 Signatures: Dispatcher [employer] EDVera Dutton 1 Eamon Galvin MD MD rn Doucette, Kyli RN RN kd3 Loretta العلي RN RN 1
--- NOTE | 2024-12-17 06:05 | RAD REPORT ---
EXAM: XR Left Hand Complete, 3 or More Views CLINICAL HISTORY: The patient is 79 years old and is Female; PAIN TECHNIQUE: Three views of the left hand. COMPARISON: No relevant prior studies available. FINDINGS: Bones/joints: Bone demineralization. Orthopedic screws in the 5th proximal phalanx. Lateral intercarpal degenerative changes. No acute fracture or dislocation. Soft tissues: Unremarkable. No radiopaque foreign body. Other findings: Pulse oximeter monitor on the distal 2nd digit. IMPRESSION: No acute findings in the left hand. Electronically signed by: Shae Campos MD 12/17/2024 05:35 AM [facility] V2 Due to temporary technical issues with the PACS/[employer] reporting system, reports are being nguyễn d by the in-house radiologist without review as a courtesy to ensure prompt reporting the interpreting radiologist is fully responsible for the content of the report. Transcribed Date/Time: 12/17/2024 6:04 AM
[2024-12-17 06:37] VITALS: TEMP 97.6
[2024-12-17 06:40] VITALS: BP 137/67; O2SAT 100
--- NOTE | 2024-12-20 11:12 | EKG ---
Test Date: 2024-12-17 Test Time: 02:24:54 [place] [employer] Finder: EDUARDO MEASUREMENT RESULTS: Intervals: Rate: 65 CT: 216 QRSD: 138 QT: 442 QTc: 459 [place]: P: 53 CT: 216 QRS: 68 T: 213 INTERPRETIVE STATEMENTS: Sinus rhythm with 1st degree AV block Nonspecific intraventricular block T wave abnormality, consider inferolateral ischemia Abnormal ECG Compared to ECG 01/04/2004 09:27:00 First degree AV block now present T-wave abnormality now present Possible ischemia now present Electronically Signed On 12-20-24 11:03:15 CDT by Tomas Clark
== END 2024-12-17 06:32 | disposition home or self-care (01) ==
LOC: ER 02:13
DX: S01.81XA Laceration without foreign body of other part of head, initial encounter (principal); S60.512A Abrasion of left hand, initial encounter; E86.0 Dehydration; W18.30XA Fall on same level, unspecified, initial encounter
CPT/HCPCS: 93005; 85025; 81001; 80048; 36415; 83735; 85610; 80076; 85730; 84484; 83880; 70450; 72125; 71045; 72170; 73130; 73110; 99284; 12052; J7040; J2003